=== PATIENT | female | born 1965 | race Caucasian/White ===

== ENCOUNTER 2019-05-09 16:01 | Emergency (ER) | payer BC, SELFPAY ==
[2019-05-09 16:12] VITALS: BP 139/92; PULSE 72; RESP 15; TEMP 36.8; O2SAT 99; BMI 26.6
--- NOTE | 2019-05-09 16:16 | DI.RAD.S_ITS ---
PROCEDURE: XR KNEE RT 3V INDICATIONS: pain in knee TECHNIQUE: 3 views of the knee were acquired. COMPARISON: None. FINDINGS: Bones: No fractures or dislocations. No significant joint space narrowing. Tiny osteophyte in the patellofemoral compartment. No suspicious bony lesions. Soft tissues: No joint effusion. No suspicious soft tissue calcifications. IMPRESSION: No fracture or dislocation. Minimal degenerative change in the patellofemoral compartment. Dictated by: Humza Márquez M.D. on 05/09/2019 at 16:51 Approved by: Humza Márquez M.D. on 05/09/2019 at 16:53
--- NOTE | 2019-05-09 16:52 | ED.EXTPRO ---
HPI - Extremity Problem <Deborah QueenCLAUDIO - Last Filed: 05/09/19 22:17> General Chief complaint: Extremity Problem,Nontraumatic Stated complaint: right knee pain x several months Time Seen by Provider: 05/09/19 16:15 Source: patient Mode of arrival: ambulatory Limitations: no limitations History of Present Illness HPI Narrative: 53-year-old female with a history of right knee pain and an orthoscopic procedure which she does not remember the name of, presents emergency department today complaining of worsening constant aching 8/10 right knee pain over the past 2 weeks. Pain is worse with movement and sitting too long. She states she has been living out of the for the past 2 weeks and has been lifting lots of heavy objects and caring them up and down steps. She states that she has seen her primary care provider and was recently referred to an orthopedic, she does not have an appointment until later on in the month. However, she states the pain is unbearable even though she has been taking etodolac. She states her provider told her to come to the emergency department to get pain medication if she continues to have pain. She denies any fevers, chest pain, shortness of breath, headaches, abdominal pain, nausea, vomiting, or stool changes. She denies swelling, erythema, or increased warmth to her right knee. Related Data Home Medications Medication Instructions Recorded Confirmed atenolol 50 mg PO BID 05/09/19 05/09/19 cyclobenzaprine 10 mg PO Q8H PRN 05/09/19 05/09/19 escitalopram oxalate 20 mg PO DAILY 05/09/19 05/09/19 etodolac 400 mg PO BIDWM 05/09/19 05/09/19 hydrocodone-acetaminophen 1 tab PO Q6H PRN 05/09/19 05/09/19 lorazepam 1 mg PO Q8H PRN 05/09/19 05/09/19 losartan 100 mg PO DAILY 05/09/19 05/09/19 oxybutynin chloride 10 mg PO DAILY 05/09/19 05/09/19 simvastatin 40 mg PO DAILY 05/09/19 05/09/19 tizanidine 4 mg PO Q6H PRN 05/09/19 05/09/19 Previous Rx's Medication Instructions Recorded hydrocodone-acetaminophen [[place]] 1 tab PO BEDTIME PRN #7 tab 05/09/19 Allergies Allergy/AdvReac Type Severity Reaction Status Date / Time No Known Drug Allergies Allergy Verified 05/09/19 16:12 Review of Systems <CLAUDIO Walker - Last Filed: 05/09/19 22:17> Review of Systems REVIEW OF SYSTEMS: GENERAL: Denies fever or chills. HENT: No head trauma. EYES: No double vision or vision loss. CARDIOVASCULAR: No chest pain or syncope. RESPIRATORY: No shortness of breath or cough. GASTROINTESTINAL: No nausea, vomiting, diarrhea, or constipation. GENITOURINARY: No flank pain or dysuria. MUSCULOSKELETAL: Complains of right knee pain, see HPI. INTEGUMENTARY: No rash, lesions, or pruritus. NEURO: No numbness, tingling. PSYCH: No behavior or mood changes. PFSH <CLAUDIO Walker - Last Filed: 05/09/19 22:17> Surgical History (Updated 05/09/19 @ 17:29 by CLAUDIO Walker) Previous back surgery (Chronic) Social History Smoking Status: Current every day smoker Social History Smoking Status: Current every day smoker Exam <CLAUDIO Walker - Last Filed: 05/09/19 22:17> Initial Vital Signs Initial Vital Signs: Vital Signs Temperature 98.2 F 05/09/19 16:12 Pulse Rate 72 05/09/19 16:12 Respiratory Rate 15 05/09/19 16:12 Blood Pressure 139/92 H 05/09/19 16:12 Pulse Oximetry 99 05/09/19 16:12 PHYSICAL EXAMINATION: GENERAL: Well groomed, alert, and cooperative. Answers questions promptly and appropriately. Vital signs noted. HENT: Normocephalic, atraumatic. EYES: Symmetrical, sclera white, no periorbital swelling. CARDIOVASCULAR: S1 and S2 sounds normal. Regular rate and rhythm, no murmurs, clicks, or bruits. No pedal edema. RESPIRATORY: Normal respiratory rate, trachea midline, airway patent. No stridor, nasal flaring or accessory muscle use. Lungs are clear in all vaughan. MUSCULOSKELETAL: Tenderness to palpation of posterior knee joint. Increased pain with drawer test however no laxity was found. No laxity with testing of the MCL or PCL. Negative Yanna's test. No erythema, ecchymosis, increased warmth, or swelling. Patient walks with a limp due to right knee pain.. Equal tone and mass bilaterally. EXTREMITIES: CMS intact. No pedal edema. SKIN: Warm, dry, soft, appropriate color for ethnicity. No lesions, rashes, or wounds. NEURO: Alert and Oriented X 3. No sensory deficits. PSYCH: Appropriate affect and mood. <Maria Ines Carrasco DO - Last Filed: 05/10/19 10:27> Initial Vital Signs Initial Vital Signs: Vital Signs Temperature 98.2 F 05/09/19 16:12 Pulse Rate 72 05/09/19 16:12 Respiratory Rate 15 05/09/19 16:12 Blood Pressure 139/92 H 05/09/19 16:12 Pulse Oximetry 99 05/09/19 16:12 Course <CLAUDIO Walker - Last Filed: 05/09/19 22:17> Course Narrative: Extensive instructions given to patient for follow-up. Orders Ordered: ED Orders 05/09/19 16:16 XR knee RT 3V Stat Vital Signs - 8 hr 05/09/19 16:12 Temperature 98.2 F Pulse Rate 72 Respiratory Rate 15 Blood Pressure 139/92 H Pulse Oximetry 99 <Maria Ines Carrasco DO - Last Filed: 05/10/19 10:27> Orders Ordered: ED Orders 05/09/19 16:16 XR knee RT 3V Stat Vital Signs - 8 hr 05/09/19 16:12 Temperature 98.2 F Pulse Rate 72 Respiratory Rate 15 Blood Pressure 139/92 H Pulse Oximetry 99 MDM - Extremity (Nontraumatic) <CLAUDIO Walker - Last Filed: 05/09/19 22:17> Imaging Data Right knee: Radiologist's impression: [address] [address] XRay Report Signed Patient: Geeta Ann#: [id number] : 1965Acct:[id number] Age/Sex: 53 / FDate of Service: 05/09/19 Loc: ED Accession Number: [id number] Procedure: XR knee RT 3V Ordering Provider: Deborah Queen PROCEDURE: XR KNEE RT 3V INDICATIONS: pain in knee TECHNIQUE: 3 views of the knee were acquired. COMPARISON: None. FINDINGS: Bones: No fractures or dislocations. No significant joint space narrowing. Tiny osteophyte in the patellofemoral compartment. No suspicious bony lesions. Soft tissues: No joint effusion. No suspicious soft tissue calcifications. IMPRESSION: No fracture or dislocation. Minimal degenerative change in the patellofemoral compartment. Dictated by: Humza Márquez M.D. on 05/09/2019 at 16:51 Approved by: Humza Márquez M.D. on 05/09/2019 at 16:53 [facility] Narrative Medical decision making narrative: Osteoarthritis versus ligament injury versus cartilage degeneration/injury, this is difficult to determine due to need of MRI to determine soft tissue injury. However I suspect that patient arthritis significantly contributes to her pain. Low suspicion for fracture due to lack of appearance on x-ray. Strict return precautions given and follow-up instructions discussed. Discharge Plan Departure Patient Disposition: Home Clinical Impression: Acute pain of right knee Discharge Date/Time: 05/09/19 17:33 Interventions: ED Discharge Assessment Last Done: 05/09/19 17:32 Instructions: DI for Knee Pain Activity Restrictions/Additional Instructions: Thank you for entrusting me with your care today. As discussed, we did not find any acute cause of you knee pain on your x-ray. I recommend keeping your appointment with your orthopedic to discuss further treatment options. I prescribed you medication, do not drive with this medication as it can make you drowsy, and also can cause constipation as well as addiction so please be mindful in using this. Return to the emergency department if he develops chest pain, shortness of breath, syncope, or high fevers. Prescriptions: New hydrocodone-acetaminophen [[place]] 5-325 mg tablet 1 tab PO BEDTIME PRN (Reason: pain) Qty: 7 RF: 0 No Action cyclobenzaprine 10 mg tablet 10 mg PO Q8H PRN (Reason: Spasms) RF: 0 etodolac 400 mg tablet 400 mg PO BIDWM RF: 0 atenolol 50 mg tablet 50 mg PO BID RF: 0 escitalopram oxalate 20 mg tablet 20 mg PO DAILY RF: 0 hydrocodone-acetaminophen 5-325 mg tablet 1 tab PO Q6H PRN (Reason: pain) RF: 0 lorazepam 1 mg tablet 1 mg PO Q8H PRN (Reason: Anxiety) RF: 0 oxybutynin chloride 10 mg tablet extended release 24hr 10 mg PO DAILY RF: 0 tizanidine 4 mg tablet 4 mg PO Q6H PRN (Reason: Spasms) RF: 0 simvastatin 40 mg tablet 40 mg PO DAILY RF: 0 losartan 100 mg tablet 100 mg PO DAILY RF: 0 <Maria Ines Carrasco DO - Last Filed: 05/10/19 10:27> Cosign ED Attending Jonh Attestation: I was immediately available in the department for consultation. Documentation has been reviewed. I agree with assessment and plan.
--- NOTE | 2019-05-09 16:57 | ED_ITS ---
HPI - Extremity Problem <Deborah QueenCLAUDIO - Last Filed: 05/09/19 22:17> General Chief complaint: Extremity Problem,Nontraumatic Stated complaint: right knee pain x several months Time Seen by Provider: 05/09/19 16:15 Source: patient Mode of arrival: ambulatory Limitations: no limitations History of Present Illness HPI Narrative: 53-year-old female with a history of right knee pain and an orthoscopic procedure which she does not remember the name of, presents emergency department today complaining of worsening constant aching 8/10 right knee pain over the past 2 weeks. Pain is worse with movement and sitting too long. She states she has been living out of the for the past 2 weeks and has been lifting lots of heavy objects and caring them up and down steps. She states that she has seen her primary care provider and was recently referred to an orthopedic, she does not have an appointment until later on in the month. However, she states the pain is unbearable even though she has been taking etodolac. She states her provider told her to come to the emergency department to get pain medication if she continues to have pain. She denies any fevers, chest pain, shortness of breath, headaches, abdominal pain, nausea, vomiting, or stool changes. She denies swelling, erythema, or increased warmth to her right knee. Related Data Home Medications Medication Instructions Recorded Confirmed atenolol 50 mg PO BID 05/09/19 05/09/19 cyclobenzaprine 10 mg PO Q8H PRN 05/09/19 05/09/19 escitalopram oxalate 20 mg PO DAILY 05/09/19 05/09/19 etodolac 400 mg PO BIDWM 05/09/19 05/09/19 hydrocodone-acetaminophen 1 tab PO Q6H PRN 05/09/19 05/09/19 lorazepam 1 mg PO Q8H PRN 05/09/19 05/09/19 losartan 100 mg PO DAILY 05/09/19 05/09/19 oxybutynin chloride 10 mg PO DAILY 05/09/19 05/09/19 simvastatin 40 mg PO DAILY 05/09/19 05/09/19 tizanidine 4 mg PO Q6H PRN 05/09/19 05/09/19 Previous Rx's Medication Instructions Recorded hydrocodone-acetaminophen [[place]] 1 tab PO BEDTIME PRN #7 tab 05/09/19 Allergies Allergy/AdvReac Type Severity Reaction Status Date / Time No Known Drug Allergies Allergy Verified 05/09/19 16:12 Review of Systems <CLAUDIO Walker - Last Filed: 05/09/19 22:17> Review of Systems REVIEW OF SYSTEMS: GENERAL: Denies fever or chills. HENT: No head trauma. EYES: No double vision or vision loss. CARDIOVASCULAR: No chest pain or syncope. RESPIRATORY: No shortness of breath or cough. GASTROINTESTINAL: No nausea, vomiting, diarrhea, or constipation. GENITOURINARY: No flank pain or dysuria. MUSCULOSKELETAL: Complains of right knee pain, see HPI. INTEGUMENTARY: No rash, lesions, or pruritus. NEURO: No numbness, tingling. PSYCH: No behavior or mood changes. PFSH <CLAUDIO Walker - Last Filed: 05/09/19 22:17> Surgical History (Updated 05/09/19 @ 17:29 by CLAUDIO Walker) Previous back surgery (Chronic) Social History Smoking Status: Current every day smoker Social History Smoking Status: Current every day smoker Exam <CLAUDIO Walker - Last Filed: 05/09/19 22:17> Initial Vital Signs Initial Vital Signs: Vital Signs Temperature 98.2 F 05/09/19 16:12 Pulse Rate 72 05/09/19 16:12 Respiratory Rate 15 05/09/19 16:12 Blood Pressure 139/92 H 05/09/19 16:12 Pulse Oximetry 99 05/09/19 16:12 PHYSICAL EXAMINATION: GENERAL: Well groomed, alert, and cooperative. Answers questions promptly and appropriately. Vital signs noted. HENT: Normocephalic, atraumatic. EYES: Symmetrical, sclera white, no periorbital swelling. CARDIOVASCULAR: S1 and S2 sounds normal. Regular rate and rhythm, no murmurs, clicks, or bruits. No pedal edema. RESPIRATORY: Normal respiratory rate, trachea midline, airway patent. No stridor, nasal flaring or accessory muscle use. Lungs are clear in all vaughan. MUSCULOSKELETAL: Tenderness to palpation of posterior knee joint. Increased pain with drawer test however no laxity was found. No laxity with testing of the MCL or PCL. Negative Ynana's test. No erythema, ecchymosis, increased warmth, or swelling. Patient walks with a limp due to right knee pain.. Equal tone and mass bilaterally. EXTREMITIES: CMS intact. No pedal edema. SKIN: Warm, dry, soft, appropriate color for ethnicity. No lesions, rashes, or wounds. NEURO: Alert and Oriented X 3. No sensory deficits. PSYCH: Appropriate affect and mood. <Maria Ines Carrasco DO - Last Filed: 05/10/19 10:27> Initial Vital Signs Initial Vital Signs: Vital Signs Temperature 98.2 F 05/09/19 16:12 Pulse Rate 72 05/09/19 16:12 Respiratory Rate 15 05/09/19 16:12 Blood Pressure 139/92 H 05/09/19 16:12 Pulse Oximetry 99 05/09/19 16:12 Course <CLAUDIO Walker - Last Filed: 05/09/19 22:17> Course Narrative: Extensive instructions given to patient for follow-up. Orders Ordered: ED Orders 05/09/19 16:16 XR knee RT 3V Stat Vital Signs - 8 hr 05/09/19 16:12 Temperature 98.2 F Pulse Rate 72 Respiratory Rate 15 Blood Pressure 139/92 H Pulse Oximetry 99 <Maria Ines Carrasco DO - Last Filed: 05/10/19 10:27> Orders Ordered: ED Orders 05/09/19 16:16 XR knee RT 3V Stat Vital Signs - 8 hr 05/09/19 16:12 Temperature 98.2 F Pulse Rate 72 Respiratory Rate 15 Blood Pressure 139/92 H Pulse Oximetry 99 MDM - Extremity (Nontraumatic) <CLAUDIO Walker - Last Filed: 05/09/19 22:17> Imaging Data Right knee: Radiologist's impression: [address] [address] XRay Report Signed Patient: Geeta Ann#: [id number] : 1965Acct:[id number] Age/Sex: 53 / FDate of Service: 05/09/19 Loc: ED Accession Number: [id number] Procedure: XR knee RT 3V Ordering Provider: Deborah Queen PROCEDURE: XR KNEE RT 3V INDICATIONS: pain in knee TECHNIQUE: 3 views of the knee were acquired. COMPARISON: None. FINDINGS: Bones: No fractures or dislocations. No significant joint space narrowing. Tiny osteophyte in the patellofemoral compartment. No suspicious bony lesions. Soft tissues: No joint effusion. No suspicious soft tissue calcifications. IMPRESSION: No fracture or dislocation. Minimal degenerative change in the patellofemoral compartment. Dictated by: Humza Márquez M.D. on 05/09/2019 at 16:51 Approved by: Humza Márquez M.D. on 05/09/2019 at 16:53 [facility] Narrative Medical decision making narrative: Osteoarthritis versus ligament injury versus cartilage degeneration/injury, this is difficult to determine due to need of MRI to determine soft tissue injury. However I suspect that patient arthritis significantly contributes to her pain. Low suspicion for fracture due to lack of appearance on x-ray. Strict return precautions given and follow-up instructions discussed. Discharge Plan Departure Patient Disposition: Home Clinical Impression: Acute pain of right knee Discharge Date/Time: 05/09/19 17:33 Interventions: ED Discharge Assessment Last Done: 05/09/19 17:32 Instructions: DI for Knee Pain Activity Restrictions/Additional Instructions: Thank you for entrusting me with your care today. As discussed, we did not find any acute cause of you knee pain on your x-ray. I recommend keeping your appointment with your orthopedic to discuss further treatment options. I prescribed you medication, do not drive with this medication as it can make you drowsy, and also can cause constipation as well as addiction so please be mindful in using this. Return to the emergency department if he develops chest pain, shortness of breath, syncope, or high fevers. Prescriptions: New hydrocodone-acetaminophen [[place]] 5-325 mg tablet 1 tab PO BEDTIME PRN (Reason: pain) Qty: 7 RF: 0 No Action cyclobenzaprine 10 mg tablet 10 mg PO Q8H PRN (Reason: Spasms) RF: 0 etodolac 400 mg tablet 400 mg PO BIDWM RF: 0 atenolol 50 mg tablet 50 mg PO BID RF: 0 escitalopram oxalate 20 mg tablet 20 mg PO DAILY RF: 0 hydrocodone-acetaminophen 5-325 mg tablet 1 tab PO Q6H PRN (Reason: pain) RF: 0 lorazepam 1 mg tablet 1 mg PO Q8H PRN (Reason: Anxiety) RF: 0 oxybutynin chloride 10 mg tablet extended release 24hr 10 mg PO DAILY RF: 0 tizanidine 4 mg tablet 4 mg PO Q6H PRN (Reason: Spasms) RF: 0 simvastatin 40 mg tablet 40 mg PO DAILY RF: 0 losartan 100 mg tablet 100 mg PO DAILY RF: 0 <Maria Ines Carrasco DO - Last Filed: 05/10/19 10:27> Cosign ED Attending Jonh Attestation: I was immediately available in the department for consultation. Documentation has been reviewed. I agree with assessment and plan.
== END 2019-05-09 17:33 | disposition home or self-care (01) ==
PROVIDERS: Emergency Provider Nurse Practitioner
DX: M25.561 Pain in right knee (principal)
CPT/HCPCS: 73562; 99282; 99283

== ENCOUNTER 2019-07-04 10:14 | Emergency (ER) | payer BC, SELFPAY ==
--- NOTE | 2019-07-04 10:22 | ED_ITS ---
HPI - Extremity Injury (Lower) General Chief Complaint: Extremity Problem,Nontraumatic Stated Complaint: right knee pain Time Seen by Provider: 07/04/19 10:15 Source: patient Mode of arrival: Ambulatory Limitations: no limitations History of Present Illness HPI Narrative: 53F smoker with chronic back and knee pain presents with severe right knee pain in the absence of any injury. She denies any falls and has not twisted it. In the past she has had injections which have helped and also steroid tapers which is what she is hoping for. She denies any numbness, tingling or weakness. She denies any trouble controlling her bowel or bladder. Her pain is worse with motion and improves with rest Related Data Home Medications Medication Instructions Recorded Confirmed calcium carbonate #0 11/22/17 cholecalciferol (vitamin D3) #0 11/22/17 [Vitamin D3] simvastatin [Zocor] 40 mg PO BEDTIME #0 11/22/17 07/04/19 atenolol 50 mg PO DAILY 05/09/19 07/04/19 cyclobenzaprine 10 mg PO Q8H PRN 05/09/19 05/09/19 escitalopram oxalate 20 mg PO DAILY 05/09/19 07/04/19 etodolac 400 mg PO BIDWM 05/09/19 05/09/19 lorazepam 1 mg PO Q8H PRN 05/09/19 05/09/19 losartan 100 mg PO DAILY 05/09/19 07/04/19 oxybutynin chloride 10 mg PO DAILY 05/09/19 05/09/19 tizanidine 4 mg PO Q6H PRN 05/09/19 05/09/19 hydrocodone-acetaminophen [[place]] 1 tab PO BEDTIME PRN 07/04/19 07/04/19 ibuprofen 800 mg PO Q8H PRN 07/04/19 07/04/19 Previous Rx's Medication Instructions Recorded prednisone See Rx Instructions .ROUTE 07/04/19 .COMPLEX #30 tab Allergies Allergy/AdvReac Type Severity Reaction Status Date / Time No Known Allergies Allergy Uncoded 06/23/19 14:40 Review of Systems Constitutional Constitutional: Denies chills, Denies fatigue, Denies fever(s), Denies frequent falls, Denies lethargy and Denies weakness Eyes Eyes: Denies change in vision, Denies eye discharge, Denies irritation and Denies loss of vision ENT Ears, Nose, Mouth, and Throat: Denies change in voice, Denies dizziness, Denies neck pain, Denies sore throat and Denies throat swelling Cardiovascular Cardiovascular: Denies chest pain, Denies irregular heart rhythm, Denies lightheadedness, Denies palpitations, Denies dyspnea, Denies dyspnea on exertion and Denies orthopnea Respiratory Respiratory: Denies cough, Denies dyspnea, Denies dyspnea on exertion and Denies wheezing Gastrointestinal Gastrointestinal: Denies abdominal pain, Denies change in bowel habits, Denies diarrhea, Denies nausea and Denies vomiting Genitourinary Genitourinary: Denies hematuria, Denies flank pain, Denies urinary incontinence and Denies urinary urgency Musculoskeletal Musculoskeletal: Denies back pain, Reports joint swelling, Reports limited range of motion, Denies muscle weakness, Denies neck pain, Denies numbness and Denies tingling Integumentary/Breasts Skin/Breast: Denies pruritus, Denies erythema, Denies rash and Denies wounds Neurologic Neurologic: Denies behavioral changes, Denies confusion, Denies dizziness, Denies frequent falls, Denies loss of vision, Denies numbness, Denies tingling and Denies weakness Psychiatric Psychiatric: Denies anxiety, Denies behavioral changes, Denies confusion, Denies depression, Denies homicidal ideation and Denies suicidal ideation Endocrine Endocrine: Denies fatigue, Denies flushing and Denies palpitations Hematologic/Lymphatic Hematologic/Lymphatic: Denies easy bruising Allergic/Immunologic Allergic/Immunologic: Denies urticaria, Denies throat swelling and Denies wheezing [facility] Surgical History Previous back surgery (Chronic) Social History (System 06/23/19 @ 14:40 by Montse Weber) Smoking Status: Current every day smoker Social History Smoking Status: Current every day smoker Exam Narrative Exam Narrative: GEN: AOx3 and in mild distress EYES: Pupils are equal, round, and reactive to light and accommodation. Extraoccular muscles are intact bilaterally. There is no subconjunctival hemorrhage or exudate. CHEST: Lungs are clear to auscultation bilaterally and free of wheezes, rales, or rhonchi. Heart rate is regular rhythm, there are no murmurs, clicks, rubs, or gallops. There is no chest wall tenderness. ABD: Abdomen is soft and nontender. There is no guarding or rebound. Bowel sounds are normal in all 4 quadrants. There is no mass or organomegaly. EXT: Full but painful range of motion of right knee. No bony point tenderness, no effusion nor with erythema SKIN: Warm, pink, and dry. No erythema or rash BACK: bottle blowing machine tender but free of any obvious external abnormalities. Patient exam notes decreased range of motion and muscle spasm, but no CVA tenderness, or vertebral point tenderness. There are no symptoms of cauda equina such as saddle anesthesia, and decreased reflexes, decreased sensation or strength. Initial Vital Signs Initial Vital Signs: Vital Signs Temperature 97.9 F 07/04/19 10:27 Pulse Rate 64 07/04/19 10:27 Respiratory Rate 20 07/04/19 10:27 Blood Pressure 162/94 H 07/04/19 10:27 Pulse Oximetry 99 07/04/19 10:27 Discharge Plan Departure Patient Disposition: Home Clinical Impression: Chronic knee pain Qualifiers: Laterality: right Qualified Code(s): M25.561 - Pain in right knee Discharge Date/Time: 07/04/19 11:04 Instructions: DI for Knee Pain Activity Restrictions/Additional Instructions: *You have been diagnosed with [chronic right knee pain, may very well be coming from your back] *What to do: *Take medications as directed: your prednisone has been sent to [facility] in [place] at your request *Follow up with your orthopedist as planned *Return to ER if you should have any new, worsening or concerning symptoms Prescriptions: New prednisone 10 mg tablet See Rx Instructions .ROUTE .COMPLEX Qty: 30 RF: 0 No Action simvastatin [Zocor] 40 MG tablet 40 mg PO BEDTIME Qty: 0 RF: 0 cholecalciferol (vitamin D3) [Vitamin D3] 2,000 UNIT tablet Qty: 0 RF: 0 calcium carbonate 260 MG tablet,chewable Qty: 0 RF: 0 cyclobenzaprine 10 mg tablet 10 mg PO Q8H PRN (Reason: Spasms) RF: 0 etodolac 400 mg tablet 400 mg PO BIDWM RF: 0 atenolol 50 mg tablet 50 mg PO DAILY RF: 0 escitalopram oxalate 20 mg tablet 20 mg PO DAILY RF: 0 lorazepam 1 mg tablet 1 mg PO Q8H PRN (Reason: Anxiety) RF: 0 oxybutynin chloride 10 mg tablet extended release 24hr 10 mg PO DAILY RF: 0 tizanidine 4 mg tablet 4 mg PO Q6H PRN (Reason: Spasms) RF: 0 losartan 100 mg tablet 100 mg PO DAILY RF: 0 ibuprofen 800 mg tablet 800 mg PO Q8H PRN (Reason: pain) RF: 0 hydrocodone-acetaminophen [[place]] 5-325 mg tablet 1 tab PO BEDTIME PRN (Reason: Pain, Moderate) RF: 0
[2019-07-04 10:27] VITALS: BP 162/94; PULSE 64; RESP 20; TEMP 36.6; O2SAT 99
== END 2019-07-04 11:04 | disposition home or self-care (01) ==
PROVIDERS: Emergency Provider Emergency Medicine
DX: M25.561 Pain in right knee (principal)
CPT/HCPCS: 99282; 99283

== ENCOUNTER 2019-08-24 07:09 | Emergency (ER) | payer BC, SELFPAY ==
[2019-08-24 07:16] VITALS: BP 202/104; PULSE 76; RESP 15; TEMP 36.8; O2SAT 96; BMI 27.4
--- NOTE | 2019-08-24 07:45 | ED.LOWEXIN ---
HPI - Extremity Injury (Lower) General Chief Complaint: Extremity Injury, Lower Stated Complaint: right knee pain, unbearable now Time Seen by Provider: 08/24/19 07:28 Source: patient Mode of arrival: Ambulatory Limitations: no limitations History of Present Illness HPI Narrative: Patient is a 54-year-old female with history of hypertension hyperlipidemia osteoarthritis presenting with chronic ongoing right knee pain. She states that she had an injection in her knee about 4 months ago pain has gotten worse and significantly worse at nighttime it throbs. She has [place] for when she has this pain however she says it does not help. She says prednisone is actually somewhat helps most. She has not had any further injury no numbness or tingling no fevers. She is followed by Orthopedics already. MD complaint: knee injury Related Data Home Medications Medication Instructions Recorded Confirmed calcium carbonate #0 11/22/17 cholecalciferol (vitamin D3) #0 11/22/17 [Vitamin D3] simvastatin [Zocor] 40 mg PO BEDTIME #0 11/22/17 07/04/19 atenolol 50 mg PO DAILY 05/09/19 07/04/19 cyclobenzaprine 10 mg PO Q8H PRN 05/09/19 05/09/19 escitalopram oxalate 20 mg PO DAILY 05/09/19 07/04/19 etodolac 400 mg PO BIDWM 05/09/19 05/09/19 lorazepam 1 mg PO Q8H PRN 05/09/19 05/09/19 losartan 100 mg PO DAILY 05/09/19 07/04/19 oxybutynin chloride 10 mg PO DAILY 05/09/19 05/09/19 tizanidine 4 mg PO Q6H PRN 05/09/19 05/09/19 hydrocodone-acetaminophen [[place]] 1 tab PO BEDTIME PRN 07/04/19 07/04/19 ibuprofen 800 mg PO Q8H PRN 07/04/19 07/04/19 Previous Rx's Medication Instructions Recorded prednisone See Rx Instructions .ROUTE 07/04/19 .COMPLEX #30 tab prednisone 20 mg PO DAILY #4 tab 08/24/19 Allergies Allergy/AdvReac Type Severity Reaction Status Date / Time No Known Drug Allergies Allergy Verified 08/24/19 07:16 Review of Systems Review of Systems Narrative: GENERAL: Denies chills,fever HEENT: Denies throat pain RESPIRATORY: Denies dyspnea, cough, wheezing CARDIOVASCULAR: Denies chest pain, palpitations GASTROINTESTINAL: Denies nausea, vomiting MUSCULOSKELETAL: See HPI SKIN: No rash, no laceration, no pruritus NEUROLOGIC: Denies weakness, dizziness, headache, numbness 8 point review of systems is negative except for those stated above and HPI Patient History Medical History Hyperlipidemia (Acute) Hypertension (Acute) Osteoarthritis (Acute) Surgical History Previous back surgery (Chronic) Social History Smoking Status: Current every day smoker alcohol intake frequency: a few times a month Substance Use Type: marijuana Exam Initial Vital Signs Initial Vital Signs: Vital Signs Temperature 98.2 F 08/24/19 07:16 Pulse Rate 76 08/24/19 07:16 Respiratory Rate 15 08/24/19 07:16 Blood Pressure 202/104 H 08/24/19 07:16 Pulse Oximetry 96 08/24/19 07:16 GENERAL: Well-appearing, well-nourished and in no acute distress. HEENT: Head atraumatic,EOMI, pupils reactive CARDIOVASCULAR: Regular rate and rhythm without murmurs, rubs or gallops. RESPIRATORY: Breath sounds equal bilaterally, no wheezes rales or rhonchi.s EXTREMITIES: Normal range of motion, no clubbing or edema. Neurovascularly intact Right lower extremity knee nonswollen no erythema, able to flex and extend no gross bony deformity peripheral pulses intact NEUROLOGICAL: Alert and oriented x4.Normal gait and speech. SKIN: Warm, dry, no laceration, no petechiae, no rashes or lesions. Course Vital Signs Vital signs: Vital Signs - 8 hr 08/24/19 07:16 08/24/19 08:10 Temperature 98.2 F Pulse Rate 76 73 Respiratory Rate 15 18 Blood Pressure 202/104 H 153/100 H Pulse Oximetry 96 100 MDM - Extremity Injury (Lower) MDM Narrative Medical decision making narrative: No recent injury no need for x-ray. Will put her on small dose short burst of prednisone. He already has narcotic pain medication home which is not working. She has follow-up with Ortho. Discharge Plan Departure Patient Disposition: Home Clinical Impression: Osteoarthritis Qualifiers: Osteoarthritis location: knee Osteoarthritis type: unspecified Laterality: right Qualified Code(s): M17.11 - Unilateral primary osteoarthritis, right knee Discharge Date/Time: 08/24/19 08:11 Instructions: DI for Osteoarthritis Activity Restrictions/Additional Instructions: *You have been diagnosed with osteoarthritis *What to do: You will need to follow up with Orthopedics. I suspect that you will need a knee replacement, however the orthopedics will be the ones to decide. *Continue to take medications as directed Prednisone 20 mg once a day for 4 days--> SENT TO [facility] IN [place] *Follow up with your primary care provider in 2-3 days *Return to ER if you should have increasing pain inability to walk or any new, worsening or concerning symptoms Prescriptions: New prednisone 20 mg tablet 20 mg PO DAILY Qty: 4 RF: 0 No Action simvastatin [Zocor] 40 MG tablet 40 mg PO BEDTIME Qty: 0 RF: 0 cholecalciferol (vitamin D3) [Vitamin D3] 2,000 UNIT tablet Qty: 0 RF: 0 calcium carbonate 260 MG tablet,chewable Qty: 0 RF: 0 cyclobenzaprine 10 mg tablet 10 mg PO Q8H PRN (Reason: Spasms) RF: 0 etodolac 400 mg tablet 400 mg PO BIDWM RF: 0 atenolol 50 mg tablet 50 mg PO DAILY RF: 0 escitalopram oxalate 20 mg tablet 20 mg PO DAILY RF: 0 lorazepam 1 mg tablet 1 mg PO Q8H PRN (Reason: Anxiety) RF: 0 oxybutynin chloride 10 mg tablet extended release 24hr 10 mg PO DAILY RF: 0 tizanidine 4 mg tablet 4 mg PO Q6H PRN (Reason: Spasms) RF: 0 losartan 100 mg tablet 100 mg PO DAILY RF: 0 ibuprofen 800 mg tablet 800 mg PO Q8H PRN (Reason: pain) RF: 0 hydrocodone-acetaminophen [[place]] 5-325 mg tablet 1 tab PO BEDTIME PRN (Reason: Pain, Moderate) RF: 0 prednisone 10 mg tablet See Rx Instructions .ROUTE .COMPLEX Qty: 30 RF: 0
[2019-08-24 08:10] VITALS: BP 153/100; PULSE 73; RESP 18; O2SAT 100
== END 2019-08-24 08:11 | disposition home or self-care (01) ==
PROVIDERS: Emergency Provider Emergency Medicine
DX: M17.11 Unilateral primary osteoarthritis, right knee (principal); I10 Essential (primary) hypertension; E78.5 Hyperlipidemia, unspecified
CPT/HCPCS: 99282; 99283